=== PATIENT | female | born 1995 | race Caucasian/White ===

== ENCOUNTER 2016-07-22 13:06 | Emergency (ER) | payer OTHER ==
[2016-07-22 14:55] LABS: HEMOGLOBIN 12.3 gm/dl (12.3-15.3); RED BLOOD COUNT 4.66 M/UL (4.00-5.10); WHITE BLOOD COUNT 6.1 K/UL (4.5-11.0)
[2016-07-22 15:11] LABS: BUN/CREATININE RATIO 9 (0-10)
== END 2016-07-22 17:30 | disposition home or self-care (01) ==
LOC: ER1 13:06
PROVIDERS: Physician Assistant Medical
DX: B34.9 Viral infection, unspecified (principal); F17.210 Nicotine dependence, cigarettes, uncomplicated
CPT/HCPCS: 36415; 71020; 80053; 81001; 83605; 83690; 84703; 85025; 87081; 87880; 96361; 96374; 99283; J2405; J7030

== ENCOUNTER 2016-10-12 23:33 | Emergency (ER) | payer SELFPAY ==
[2016-10-13 01:15] LABS: HEMOGLOBIN 12.6 gm/dl (12.3-15.3); RED BLOOD COUNT 4.68 M/UL (4.00-5.10); WHITE BLOOD COUNT 12.4 K/UL (4.5-11.0)
[2016-10-13 01:58] LABS: BUN/CREATININE RATIO 15 (0-10)
== END 2016-10-13 04:30 | disposition home or self-care (01) ==
LOC: ER1 23:33
PROVIDERS: Physician Assistant
DX: O46.91 Antepartum hemorrhage, unspecified, first trimester (principal); O99.89 Other specified diseases and conditions complicating pregnancy, childbirth and the puerperium; R10.817 Generalized abdominal tenderness; Z3A.01 Less than 8 weeks gestation of pregnancy
CPT/HCPCS: 36415; 80053; 81001; 83690; 84702; 84703; 85025; 86900; 86901; 87077; 87086; 87186; 96360; 99284; J7030

== ENCOUNTER 2021-01-19 19:20 | Emergency (ER) | payer OTHER ==
[2021-01-19 20:27] LABS: RED BLOOD COUNT 5.05 M/UL (4.00-5.10); WHITE BLOOD COUNT 2.1 K/UL (4.5-11.0)
[2021-01-19] MEDS ORDERED: K-DUR TAB 20 M20 MEQ PO (22:32)
[2021-01-19] MEDS ORDERED: ZOFRAN ODT 4 MG4 MG SL (22:32)
== END 2021-01-19 22:55 | disposition home or self-care (01) ==
LOC: ER1 19:20
PROVIDERS: Emergency Medicine
DX: Z23 Encounter for immunization (principal); U07.1 COVID-19; E87.6 Hypokalemia
CPT/HCPCS: 71045; 80053; 83735; 84703; 85025; 99284; M0243

== ENCOUNTER → 2021-08-05 | Outpatient (CLI) | payer OTHER ==
[~2021-08-05] MED LIST: K-DUR TAB 20 M20 MEQ PO; ZOFRAN ODT 4 MG4 MG SL
== END ==
LOC: KOH-I 16:43
DX: M79.674 Pain in right toe(s) (principal)
CPT/HCPCS: 73630